=== PATIENT | female | born 1970 | race Caucasian/White ===

== ENCOUNTER → 2016-10-06 | Outpatient (CLI) | payer BC ==
--- NOTE | 2016-10-06 14:35 | REP ---
Whole body radionuclide bone scan: Whole-body scanning is performed from the calvarium to the feet. Additionally enlarged lateral views of the skull, oblique views of the ribs and oblique views of the pelvis are performed. There are no comparison studies. There is bilaterally symmetric uptake in the shoulders, compatible with degenerative uptake. There is bilateral symmetric uptake in the sternoclavicular joints, compatible with degenerative uptake. Uptake throughout the skeletal structures otherwise is normal. There are no abnormal foci of uptake. Impression: Normal radionuclide bone scan. Degenerative uptake is noted in the shoulders and sternoclavicular joints. No abnormal sternal uptake is identified. The study is performed with MDP radiolabeled with 751.1 MBq of technetium 99m. Signed by Wilmar Davis MD 10/06/2016 02:27 P
== END ==
LOC: M RAD 10:30
PROVIDERS: ATTEND Nurse Practitioner Adult Health
DX: J98.9 Respiratory disorder, unspecified (principal)

== ENCOUNTER → 2017-03-27 | Outpatient (REF) | payer BC | LOC: M LAB REF 13:29 | PROVIDERS: ATTEND Surgery | DX: D48.5 Neoplasm of uncertain behavior of skin (principal) ==

== ENCOUNTER → 2019-12-10 | Outpatient (REF) | payer BC | LOC: M LAB REF 16:20 | PROVIDERS: ATTEND Nurse Practitioner Adult Health | DX: M79.7 Fibromyalgia (principal); M94.1 Relapsing polychondritis; I73.00 Raynaud's syndrome without gangrene ==

== ENCOUNTER → 2020-03-08 | Outpatient (CLI) | payer BC | LOC: M LABSMTC 10:58 | PROVIDERS: ATTEND Pediatrics | DX: Z11.59 Encounter for screening for other viral diseases (principal); Z20.828 Contact with and (suspected) exposure to other viral communicable diseases ==

== ENCOUNTER → 2021-03-15 | Outpatient (CLI) | payer BC | LOC: M WHC 06:59 | PROVIDERS: ATTEND Internal Medicine | DX: Z12.31 Encounter for screening mammogram for malignant neoplasm of breast (principal) ==

== ENCOUNTER → 2023-06-22 | Outpatient (CLI) | payer BC | LOC: M WHC 08:24 | PROVIDERS: ATTEND Nurse Practitioner Adult Health | DX: Z12.31 Encounter for screening mammogram for malignant neoplasm of breast (principal) ==

== ENCOUNTER → 2023-09-06 | Outpatient (REF) | LOC: M EMP 08:05 | PROVIDERS: ATTEND Family Medicine | DX: Z11.52 Encounter for screening for COVID-19 (principal) ==

== ENCOUNTER → 2024-06-10 | Outpatient (REF) | payer OTHER | LOC: M LAB REF 17:38 | PROVIDERS: ATTEND Nurse Practitioner Adult Health | DX: M94.1 Relapsing polychondritis (principal); M79.7 Fibromyalgia ==

== ENCOUNTER → 2024-08-08 | Outpatient (CLI) | payer BC | LOC: M WHC 14:29 | PROVIDERS: ATTEND Nurse Practitioner Adult Health | DX: Z12.31 Encounter for screening mammogram for malignant neoplasm of breast (principal); R92.323 Mammographic fibroglandular density, bilateral breasts ==

== ENCOUNTER → 2025-05-06 | Outpatient (CLI) | payer BC | LOC: M WHC 10:14 | PROVIDERS: ATTEND Nurse Practitioner Adult Health | DX: M85.80 Other specified disorders of bone density and structure, unspecified site (principal); Z79.52 Long term (current) use of systemic steroids ==